=== PATIENT | female | born 1970 | race African-American/Black ===

== ENCOUNTER 2017-05-06 21:12 | Emergency (ER) | payer OTHER ==
[2017-05-06 21:27] VITALS: PULSE 98; RESP 18; TEMP 98.2
[2017-05-06] MEDS ORDERED: CLINDAMYCIN 150 MG CAP PO STA (21:32)
[2017-05-06] MEDS ORDERED: ACET/COD 300 MG/30 MG STARTER PACK 6 TAB BTL PO STA (21:32)
--- NOTE | 2017-05-06 21:33 | ED ---
ENT HPI - General Chief complaint: Dental/Oral Stated complaint: Dental Pain Time Seen by Provider: 05/06/17 21:20 Source: patient, RN notes reviewed, old records reviewed Mode of arrival: ambulatory Limitations: no limitations - History of Present Illness Initial comments: This patient is a 47-year-old female presents emergency department today chief complaint of left-sided jaw pain and swelling for the past few days. Patient reports that she has history of poor dentition. She states she is trying to follow-up with a dental clinic. She states that she's noticed it started to swell. Patient denies any difficulty breathing or swallowing. She reports that she has no fever or chills. She states she has a family history of diabetes and high blood pressure but is never been diagnosed with either of these. Patient states that she does not take any medications or see a doctor regularly. - Related Data Home Medications Medication Instructions Recorded Confirmed Naproxen Sodium [Aleve] 440 mg PO DAILY PRN 05/06/17 05/06/17 Previous Rx's Medication Instructions Recorded Acetaminophen-Codeine 300-30mg 1 tab PO Q8H PRN #20 tablet 05/06/17 [Tylenol #3] Clindamycin [Cleocin] 450 mg PO Q6H 10 Days 05/06/17 amLODIPine [Norvasc] 5 mg PO DAILY #14 tab 05/06/17 Allergies Allergy/AdvReac Type Severity Reaction Status Date / Time No Known Allergies Allergy Verified 05/06/17 21:26 Review of Systems ROS Statement: Those systems with pertinent positive or pertinent negative responses have been documented in the HPI. ROS Other: All systems not noted in ROS Statement are negative. Past Medical History Past Medical History: No Reported History History of Any Multi-Drug Resistant Organisms: None Reported Past Surgical History: Tubal Ligation Past Psychological History: No Psychological Hx Reported Smoking Status: Current every day smoker Past Alcohol Use History: Occasional Past Drug Use History: None Reported General Exam - General Exam Comments Initial Comments: This patient is a well-appearing 47-year-old female. No distress. Limitations: no limitations General appearance: alert, in no apparent distress Head exam: Present: atraumatic, normocephalic, normal inspection Eye exam: Present: normal appearance, PERRL, EOMI. Absent: scleral icterus, conjunctival injection, periorbital swelling ENT exam: Present: normal exam, mucous membranes moist. Absent: normal oropharynx (Patient is extremely poor dentition. Patient has significant gum swelling over tooth 18 19.) Neck exam: Present: normal inspection. Absent: tenderness, meningismus, lymphadenopathy Respiratory exam: Present: normal lung sounds bilaterally. Absent: respiratory distress, wheezes, rales, rhonchi, stridor Cardiovascular Exam: Present: regular rate, normal rhythm, normal heart sounds. Absent: systolic murmur, diastolic murmur, rubs, gallop, clicks GI/Abdominal exam: Present: soft, normal bowel sounds. Absent: distended, tenderness, guarding, rebound, rigid Extremities exam: Present: normal inspection, full ROM, normal capillary refill. Absent: tenderness, pedal edema, joint swelling, calf tenderness Back exam: Present: normal inspection Skin exam: Present: warm, dry, intact, normal color. Absent: rash Course Vital Signs 05/06/17 21:24 Temperature 98.2 F Pulse Rate 98 Respiratory 18 Rate Blood Pressure 171/83 O2 Sat by Pulse 100 Oximetry Medical Decision Making - Medical Decision Making Physical 47-year-old female presents emergency department today chief complaint of left-sided lower dental pain and swelling for the past few days. Patient reports that she is an infection within her gums. She does have anemia and swelling over the gums of her tooth 1819 and 20. She does have some swelling over no notable left mandibular area. No evidence of Constantin angina at this time. She reports that she has a family history of high blood pressure and diabetes is not been diagnosed her tested for either of these. She denies any chest pain shortness of breath this time. At this time I'll treat the patient with dental abscess with clindamycin. Given an initial dose emergency department. Initial blood pressure is 171/83. Patient will be started on Norvasc. I will give the patient referrals for dental clinics as well as primary care physician. Discussed rechecking blood pressure with a primary care physician as well. Patient understands treatment plan will comply. Return parameters were discussed. Disposition Clinical Impression: Dental abscess, Hypertension Disposition: HOME SELF-CARE Condition: Good Instructions: Dental Abscess (ED) Additional Instructions: [facility] [address] [place] [address] [phone] (existing clients only) For new clients: [phone] 1st consult: $50 (includes Xrays) Usually 30% less then private dentist for visits after. [employer] Have to pay $50 for Xrays anmd rest is covered. [phone] [facility]: [place]: [phone] [place], [place] [address] Appointment is Necessary Call @6AM Thursday, Thursday, Thursday & 8am-11am Only take patients with no insurance or Medicaid. ---Do not accept patient with Blue Cross, Medicare, or Commerical Insurance Patient is to complete the entire antibiotic prescription. Also take the medicine for her blood pressure. Patient should follow-up with primary care physician within the next few days. Return to the emergency department if any alarming signs or symptoms occur. Prescriptions: Acetaminophen-Codeine 300-30mg [Tylenol #3] 1 tab PO Q8H PRN #20 tablet PRN Reason: Pain amLODIPine [Norvasc] 5 mg PO DAILY #14 tab Clindamycin [Cleocin] 450 mg PO Q6H 10 Days Referrals: None,Stated [Primary Care Provider] - 1-2 days Molly aCrmen MD [STAFF PHYSICIAN] - 1-2 days Joel Callejas MD [STAFF PHYSICIAN] - 1-2 days Time of Disposition: 21:40
[2017-05-06] MEDS ORDERED: amLODIPine 5 MG TAB PO STA (21:36)
[2017-05-06 21:48] VITALS: BP 150/78
== END 2017-05-06 22:00 | disposition home or self-care (01) ==
LOC: EC 21:12
DX: K04.7 Periapical abscess without sinus (principal); I10 Essential (primary) hypertension; F17.200 Nicotine dependence, unspecified, uncomplicated
CPT/HCPCS: 99283

== ENCOUNTER → 2017-10-21 | Outpatient (CLI) | payer OTHER ==
--- NOTE | 2017-10-21 09:25 | FL ---
EXAMINATION TYPE: FL UGI w esophagus DATE OF EXAM: 10/21/2017 COMPARISON: NONE HISTORY: Dysphagia per order. Epigastric pain and heartburn and reflux-like symptoms for 3 to 4 years per patient. Some chest heaviness. TECHNIQUE: A double contrast UGI study is performed. A total of 1 minute 24 seconds of fluoroscopic time was utilized during procedure. Approximately 40 images are obtained and sent to PACS. FINDINGS: M[employer] Cl[employer] Changer image of the abdomen shows overall nonobstructive bowel gas pattern. The esophagus shows satisfactory motility and emptying into the stomach. No evidence of hiatal herni a, intraluminal mass, or stricture noted. The stomach shows satisfactory distensibility and peristalsis. There is fairly moderate prominence of gastric folds towards the fundus. No pooling ulcer identified. Occasional episode of gastroesophagea l reflux into distal one fourth of esophagus is seen during real-time performance of study. The duodenal bulb, sweep, and proximal small bowel loops are not contrast opacified and thus suboptim ally evaluated. IMPRESSION: Moderate fundal gastritis with occasional gastroesophageal reflux
--- NOTE | 2017-10-21 10:03 | US ---
EXAMINATION TYPE: US pelvic complete DATE OF EXAM: 10/21/2017 COMPARISON: NONE CLINICAL HISTORY: R13.10 Dysphagia, N93.9 Abnormal uterine Bleeding. Heavy menses, tubal ligation TECHNIQUE: . Transabdominal sonographic images of the pelvis were acquired. Transvaginal US deferred due to enlarged uterine size and fibroid Date of LMP: 10/01/2017, EXAM MEASUREMENTS: Uterus: 12.5 x 8.1 x 7.9 cm Endometrial Stripe: 0.7 cm Right Ovary: 2.6 x 1.7 x 1.1 cm Left Ovary: 3.3 x 2.2 x 2.5 cm 1. Uterus: Anteverted Heterogenous. Enlarged. Mid fundal lesion seen = 4.2 x 4.3 x 4.3 cm 2. Endometrium: wnl 3. Right Ovary: wnl 4. Left Ovary: cystic appearing lesion seen = 2.4 x 1.5 x 1.6 cm 5. Bilateral Adnexa: wnl 6. Posterior cul-de-sac: no free fluid Cervix- wnl There is 2.4 cm prominent follicle or simple small ovarian cyst in left ovary. IMPRESSION: On transvaginal imaging towards end of study there is better visualization of 4.3 cm isoe choic anterior intramural fibroid.
== END | disposition home or self-care (01) ==
LOC: RADFLMAIN 07:45
PROVIDERS: ATTEND Family Medicine
DX: K29.70 Gastritis, unspecified, without bleeding (principal); K21.9 Gastro-esophageal reflux disease without esophagitis; D25.1 Intramural leiomyoma of uterus
CPT/HCPCS: 74240; 76856

== ENCOUNTER → 2017-11-09 | Outpatient (CLI) | payer OTHER ==
--- NOTE | 2017-11-09 13:10 | ECHOS ---
STRESS ECHOCARDIOGRAM DATE OF SERVICE: 11/09/2017 INDICATIONS: Chest pain. MEDICATIONS: BASELINE HEART RATE: 74 BASELINE BLOOD PRESSURE: 128/59 MAXIMUM HEART RATE: 150 MAXIMUM BLOOD PRESSURE: 199/56 85% MPHR: 140 100% MPHR: 173 METS: 4.8 MAXIMUM STAGE REACHED: II TOTAL EXERCISE TIME: 3 minutes 15 seconds CLINICAL INFORMATION: Baseline rhythm is sinus mechanism, rate of 74, normal axis and intervals. Minor repolarization changes. Baseline blood pressure 128/59 mmHg. Patient exercised on Juan David protocol for 3 minutes 15 seconds reaching a peak rate 150 beats per minute which is equal to 87% maximum predicted heart rate. Peak blood pressure 199/56 mmHg. Test was terminated secondary to fatigue. There was no chest pain. Electrocardiograph monitoring revealed no evidence of diagnostic ischemic ST deviation. Baseline echocardiogram revealed normal wall motion. At peak exercise, there was normal wall motion augmentation with no hypokinesis or dyskinesis. CONCLUSION: 1. Poor exercise tolerance with normal electrocardiograph response to exercise. 2. Normal stress echocardiogram with no evidence of stress-induced ischemia. MMODL / IJN: [id number] /
== END | disposition home or self-care (01) ==
LOC: RADNMMAIN 09:41
PROVIDERS: ATTEND Family Medicine
DX: R07.9 Chest pain, unspecified (principal)
CPT/HCPCS: 93351

== ENCOUNTER → 2023-04-29 | Outpatient (CLI) | payer OTHER ==
--- NOTE | 2023-04-30 08:32 | MM ---
Reason for Exam: Screening (asymptomatic). Baseline mammogram. Patient History: Menarche at age 13. First Full-Term at age 19. Perimenopausal. Last menstrual period: 04/08/2023 Risk Values: Macy 5 year model risk: 1.3%. NCI Lifetime model risk: 8.2%. Prior Study Comparison: Patient's first Mammogram. Tissue Density: There are scattered fibroglandular densities. Findings: Analyzed By CAD. There is no suspicious group of microcalcifications or new suspicious mass in either breast. Overall Assessment: Negative, BI-RAD 1 Management: Screening Mammogram of both breasts in 1 year. . Patient should continue monthly self-breast exams. A clinical breast exam by your physician is recommended on an annual basis. This exam should not preclude additional follow-up of suspicious palpable abnormalities. Note on Macy scores and lifetime risk: 1. A Macy score greater than 3% is considered moderate risk. If this is the case, consider specialist referral to assess eligibility for a risk reducing agent. 2. If overall lifetime risk for the development of breast cancer is 20% or higher, the patient may qualify for future screening with alternating mammogram and breast MRI. Electronically signed and approved by: Best Allen M.D. Radiologis
== END | disposition home or self-care (01) ==
LOC: RADMAMWWP 10:00
PROVIDERS: ATTEND Family Medicine
DX: Z12.31 Encounter for screening mammogram for malignant neoplasm of breast (principal)
CPT/HCPCS: 77063; 77067